=== PATIENT | female | born 1965 | race Caucasian/White ===

== ENCOUNTER 2019-08-11 07:32 | Emergency (ER) | payer BC ==
[~2019-08-11] VITALS: Ht 157.5 cm; Wt 80.0 kg
[~2019-08-11 07:32] MED LIST: CEPH-443 PO; CYCL10TA7 PO; ESOM40CA PO; FAMO-96 PO; IBUP-1542 PO; ONDA4TAB8 PO
[2019-08-11 07:39] VITALS: Ht 157.5 cm; Wt 80.0 kg
[2019-08-11] MEDS ORDERED: ONDANSETRON 4 MG INJ IV STA (08:13)
[2019-08-11] MEDS ORDERED: morphine 4 MG/ML VIAL IV STA (08:13)
[2019-08-11] MEDS ORDERED: SOD CHLORIDE 0.9% 1,000 ML IV STA (08:13)
[2019-08-11] MEDS ORDERED: LIDOCAINE 2% VISC 10 ML CUP PO ONE (08:30)
[2019-08-11] MEDS ORDERED: AL HYDROX/MG HYDROX/SIMETH 30 ML CUP PO ONE (08:30)
[2019-08-11] MEDS ORDERED: PANTOPRAZOLE 40 MG INJ IV ONE (08:30)
[2019-08-11] MEDS ORDERED: FAMOTIDINE 20 MG TAB PO ONE (08:30)
[2019-08-11] MEDS ORDERED: CEFTRIAXONE 1 GM/50 ML (PMX) 50 ML IVPB ONE (09:30)
[2019-08-11 10:03] VITALS: BP 117/78; PULSE 78; RESP 16
== END 2019-08-11 10:12 | disposition home or self-care (01) ==
LOC: E/R 07:32
DX: K29.01 Acute gastritis with bleeding (principal); N39.0 Urinary tract infection, site not specified
CPT/HCPCS: 36415; 71045; 80053; 81001; 83690; 85025; 85610; 85730; 96361; 96365; 96375; 99284; C9113; J0696; J2270; J2405; J7030